=== PATIENT | female | born 1945 | race Caucasian/White ===

== ENCOUNTER → 2020-11-04 11:33 | Outpatient (BNVA) | payer MEDICARE, OTHER, SELFPAY | PROVIDERS: Family Provider Nurse Practitioner Family; PCP Registered Nurse; Visit Provider Registered Nurse | DX: R06.02 Shortness of breath (principal); R06.00 Dyspnea, unspecified; B94.8 Sequelae of other specified infectious and parasitic diseases; I10 Essential (primary) hypertension | CPT/HCPCS: 80053; 85025 ==

== ENCOUNTER 2020-11-06 10:21 | Outpatient (CLI) | payer MEDICARE, OTHER, SELFPAY ==
--- NOTE | 2020-11-06 10:45 | CT_ITS ---
WS: [id number] CT CHEST TECHNIQUE: Noncontrast CT of the chest with coronal and sagittal reformatted images. CLINICAL INFORMATION: R91.1 - Solitary pulmonary nodule COMPARISON: Outside Chest radiograph report November 04, 2020 DLP: 841.[address] scans at [facility] use at least one of these dose optimization techniques: automat ed exposure control; mA and/or kV adjustment per patient size (includes targeted exams where dose is matched to clinical indication); or iterative reconstruction. FINDINGS: Lobulated noncalcified opacity right upper lobe along the hilum measuring 11 x 10 mm. This correspond s to the reported abnormality on the chest radiograph. Findings are nonspecific but suspicious for ne oplasm. This can be further evaluated with PET/CT. This is not amenable to CT-guided biopsy. Addition al noncalcified pulmonary nodule right lower lobe near the diaphragm measuring 8.1 mm. Recommend 6 mo nth follow-up chest CT. Tiny 4 mm noncalcified nodule left upper lobe. Additional 3 mm noncalcified n odule left lower lobe. Patchy hazy ground glass infiltrates in a subpleural configuration throughout both lungs nonspecific but can be seen with infectious or inflammatory pneumonitis including COVID 19-related pneumonia. No focal pneumonia or pleural fluid. No mediastinal or hilar lymphadenopathy. Aortic calcification. C oronary calcification. Calcified granulomatous disease. Diffuse fatty infiltration of the liver. Hepatomegaly. Splenic and hepatic granulomas. Adrenal glands are normal. Moderate esophageal hiatal hernia. Dense cholelithiasis with contracted gallbladder. CT/CT chest wo con [id number] IMPRESSION: 1. Lobulated noncalcified pulmonary nodule measuring 11 x 10 mm along the righ t hilum corresponds to chest CT findings. Findings are nonspecific but suspicio us for neoplasm. This can be further evaluated with PET/CT. 2. Additional noncalcified pulmonary nodule right lower lobe near the diaphrag m measuring 8.1 mm. Recommend 6 month follow-up chest CT. 3. Hazy mild subpleural groundglass infiltrates within both lungs can be seen with infectious or inflammatory etiologies including COVID19 pneumonitis. Recom mend clinical correlation. 4. No focal consolidation or pleural fluid. 5. Dense cholelithiasis with contracted gallbladder. This can be further evalu ated with ultrasound. 6. Moderate esophageal hiatal hernia. 7. Dense diffuse fatty infiltration of the liver.
== END 2020-11-06 10:22 | disposition home or self-care (01) ==
PROVIDERS: PCP Registered Nurse; Visit Provider Registered Nurse
DX: R91.1 Solitary pulmonary nodule (principal); K76.0 Fatty (change of) liver, not elsewhere classified; K44.9 Diaphragmatic hernia without obstruction or gangrene; K80.20 Calculus of gallbladder without cholecystitis without obstruction
CPT/HCPCS: 71250

== ENCOUNTER 2020-12-11 15:32 | Outpatient (CLI) | payer MEDICARE, OTHER, SELFPAY ==
--- NOTE | 2020-12-11 16:08 | XR_ITS ---
WS: [id number] Chest 2 views, 12/11/2020 Clinical Data: rule out pneumonia Comparison: None. Findings: No nodules, masses or effusions are seen. The heart is normal. The pulmonary vascularity is not increased. No pneumonia or pneumothorax is seen. The aortic arch and descending thoracic aorta s how calcification and tortuosity. XR/XR chest 2V* [id number] Impression: Atherosclerosis.
[2020-12-11 16:51] LABS: Basophils # 0.1 10^3/uL (0.0-0.1); Basophils % 0.9 %; Eosinophils # 0.3 10^3/uL (0.0-0.8); Hematocrit 41.6 % (37.0-47.0); Hemoglobin 13.3 g/dL (11.5-15.3); Lymphocytes # 2.1 10^3/uL (0.8-4.8); Mean Corpuscular Hemoglobin 30.4 pg (28.0-34.0); Mean Corpuscular Volume 95.2 fl (81-99); Monocytes # 0.6 10^3/uL (0.2-0.9); Monocytes % 6.9 %; Neutrophils # 5.74 10^3/uL (1.8-7.7); Neutrophils % 64.5 %; Nucleated Red Blood Cells % 0 %; Platelet Count 294 10^3/cmm (130-400); Red Blood Count 4.37 10^6/uL (4.1-5.3); White Blood Count 8.9 10^3/uL (4.0-10.0)
[2020-12-15 18:07] LABS: Alternaria Alternata (M6) Ige <0.10 kU/L; Alternaria Class 0; Bermuda Class 0; Bermuda Grass (G2) Ige <0.10 kU/L; Cat Dander (E1) Ige <0.10 kU/L; Cat Dander Class 0; Common Ragweed (Short) (W1) Ig <0.10 kU/L; D. Farinae Class 0; Dermatophagoides Class 0; Dermatophagoides Farinae (D2) <0.10 kU/L; Dermatophagoides Pteronyssinus <0.10 kU/L; Dog Dander (E5) Ige <0.10 kU/L; Dog Dander Class 0; Elm (T8) Ige <0.10 kU/L; Elm Class 0; English Plantain (W9) Ige <0.10 kU/L; English Plantain Class 0; House Dust (Greer) (H1) Ige <0.10 kU/L; House Dust (Hollister- Stier) <0.10 kU/L; House Dust Class 0; Immunoglobulin E 8 kU/L (<OR=114); Johnson Grass (G10) Ige <0.10 kU/L; Johnson Grass Cl 0; June Grass Class 0; June Grass(Kentucky Blue) (G8) <0.10 kU/L; Lamb'S Quarters (Goose Foot) <0.10 kU/L; Lamb'S Quarters Class 0; Maple (Box Elder) (T1) Ige <0.10 kU/L; Maple Class 0; Meadow Fescue (G4) Ige <0.10 kU/L; Meadow Fescue Class 0; Mucor Racemosus Class 0; Oak (T7) Ige <0.10 kU/L; Oak Class 0; Orchard Grass (Cocksfoot) (G3) <0.10 kU/L; Penicillium Class 0; Penicillium Notatum (M1) Ige <0.10 kU/L; Perennial Rye Grass (G5) Ige <0.10 kU/L; Perennial Rye Grass Class 0; Ragweeed Class 0; Rough Marsh Elder (W16) Ige <0.10 kU/L; Rough Marsh Elder Class 0; Sweet Vernal Class 0; Sweet Vernal Grass (G1) Ige <0.10 kU/L; Timothy Grass (G6) Ige <0.10 kU/L; Timothy Grass Class 0
[2020-12-17 18:18] LABS: Aspergillus Fumigatus, Igg Ab, 9.4 mg/L (<=102)
== END 2020-12-11 15:33 | disposition home or self-care (01) ==
PROVIDERS: PCP Registered Nurse; Visit Provider Internal Medicine Pulmonary Disease
DX: B94.8 Sequelae of other specified infectious and parasitic diseases (principal); J45.909 Unspecified asthma, uncomplicated; R06.00 Dyspnea, unspecified; R06.02 Shortness of breath; I70.90 Unspecified atherosclerosis
CPT/HCPCS: 36415; 71046; 82785; 85025; 86003

== ENCOUNTER 2021-02-05 10:45 | Outpatient (CLI) | payer MEDICARE, OTHER, SELFPAY ==
--- NOTE | 2021-02-05 11:45 | CT_ITS ---
WS: [id number] CT CHEST WITHOUT INTRAVENOUS CONTRAST HISTORY: pulmonary nodule TECHNIQUE: Contiguous 5 mm axial imaging performed on the thorax. Coronal and sagittal reformats are submitted. All CT scans at [facility] use at least one of these dose optimization techniques: automated exposure control; mA and/or kV adjustment per patient size (includes targeted exams where dose is matched to clinical indication); or iterative reconstruction. CONTRAST: None DLP: 796.95 mGycm COMPARISON: 11/06/2020 Lungs and central airway: Recently described solid round pulmonary nodule in the RIGHT upper lobe is again identified. This nodule measures 12 x 12 x 10 mm. Very slight increase in size which could be d ue to slice selection and volume averaging. This nodule is not decreasing in size. Additional 3 mm no dule in the LEFT upper lobe is unchanged. 3 mm nodule posterior LEFT lower lobe is unchanged. 8mm nod ule RIGHT lung base is unchanged. 5 mm nodule RIGHT lower lobe. There is been an improvement in the p eripheral groundglass attenuation suggesting improving pneumonitis. Pleura: Normal. No pleural effusion. Heart and pericardium: Mild cardiomegaly with no pericardial effusion. Mediastinum and deni: No adenopathy identified on this unenhanced study. Vessels: Mild atherosclerosis aorta. No aneurysm. Pulmonary artery size is mildly dilated at 3.3 cm. Chest wall and lower neck: No soft tissue masses. Upper abdomen: Moderate size hiatal hernia. There is increased density within the hiatal hernia. This may be medicinal tablets.: Physis. Dense calcification expected location of the gallbladder. Hepatic and splenic granulomata. Diffuse hepatic steatosis. No adrenal mass. Osseous structures: No osteoblastic or osteolytic bone disease. CT/CT chest wo con [id number] IMPRESSION: 1. Solid nodule in the RIGHT upper lobe has very slightly increased in size si nce 11/06/2020. Nodule measures 12 x 12 x 10 mm. Suspicious but indeterminate for neoplasm. PET/CT was indeterminate on 11/15/2020. Close continued follow-up rec ommended. Recommend follow-up chest CT in 3 months. 2. Additional, subcentimeter bilateral pulmonary nodules are unchanged. 3. Pulmonary hypertension. 4. Cholelithiasis in a contracted gallbladder and hepatic steatosis. 5. Increased density within the lumen of a moderate size hiatal hernia. Suspec t this increased density represents medicinal tablets.
== END 2021-02-05 10:46 | disposition home or self-care (01) ==
PROVIDERS: PCP Registered Nurse; Visit Provider Internal Medicine Pulmonary Disease
DX: R06.00 Dyspnea, unspecified (principal); B94.8 Sequelae of other specified infectious and parasitic diseases; R91.1 Solitary pulmonary nodule; I27.20 Pulmonary hypertension, unspecified; K80.20 Calculus of gallbladder without cholecystitis without obstruction; K76.0 Fatty (change of) liver, not elsewhere classified; K44.9 Diaphragmatic hernia without obstruction or gangrene
CPT/HCPCS: 71250

== ENCOUNTER → 2021-02-09 09:56 | Outpatient (BNVA) | payer MEDICARE, OTHER, SELFPAY | PROVIDERS: PCP Registered Nurse; Visit Provider Internal Medicine Pulmonary Disease | DX: B94.8 Sequelae of other specified infectious and parasitic diseases (principal); J45.20 Mild intermittent asthma, uncomplicated; R06.00 Dyspnea, unspecified; Z20.822 Contact with and (suspected) exposure to COVID-19 | CPT/HCPCS: 87635 ==

== ENCOUNTER 2021-02-12 10:58 | Outpatient (CLI) | payer MEDICARE, OTHER, SELFPAY ==
--- NOTE | 2021-02-12 11:19 | PFTS_ITS ---
Date of Study:02/12/21 Date of Dictation: MECHANICS: Forced vital capacity (FVC) is normal. Forced expiratory volume in one second (FEV1) is normal. FEV1/FVC is normal. FLOW VOLUME LOOP: Normal. LUNG VOLUMES: Total lung capacity (TLC) is normal. Residual volume (RV) is normal. DIFFUSING CAPACITY FOR CARBON MONOXIDE: Normal. INTERPRETATION: The postbronchodilator spirometry is normal. There is some postbronchodilator improvement in FEV1 but this does not reach steady state of significance. Lung volumes are normal. Gas exchange (DLCO) is normal. MTDD
== END 2021-02-12 10:59 | disposition home or self-care (01) ==
LOC: RT 10:59
PROVIDERS: PCP Registered Nurse; Visit Provider Internal Medicine Pulmonary Disease
DX: J45.909 Unspecified asthma, uncomplicated (principal); R06.00 Dyspnea, unspecified; B94.8 Sequelae of other specified infectious and parasitic diseases
CPT/HCPCS: 94060; 94618; 94726; 94729; J7611

== ENCOUNTER → 2023-06-27 08:03 | Outpatient (BNVA) | payer MEDICARE, OTHER, SELFPAY | PROVIDERS: PCP Registered Nurse; Visit Provider Registered Nurse | DX: E11.9 Type 2 diabetes mellitus without complications (principal) | CPT/HCPCS: 80053; 80061; 83036; 85025 ==

== ENCOUNTER → 2024-08-02 10:50 | Outpatient (BNVA) | payer MEDICARE, OTHER, SELFPAY | PROVIDERS: PCP Registered Nurse; Visit Provider Registered Nurse | DX: I10 Essential (primary) hypertension (principal); E11.9 Type 2 diabetes mellitus without complications | CPT/HCPCS: 80053; 80061; 83036; 85025 ==

== ENCOUNTER 2024-08-14 09:27 | Outpatient (CLI) | payer MEDICARE, OTHER, SELFPAY ==
--- NOTE | 2024-08-14 10:45 | CT_ITS ---
WS: [id number] CT chest wo con [id number] HISTORY: R91.1 - Solitary pulmonary nodule TECHNIQUE: Axial imaging performed through the thorax. Coronal and sagittal reformats are submitted. All CT scans at [facility] use at least one of these dose optimization techniques: automated exposure control; mA and/or kV adjustment per patient size (includes targeted exams where dose is matched to clinical indication); or iterative reconstruction. CONTRAST: Omnipaque 350; 100 mL IV. DLP: 391.62 mGy.cm COMPARISON: 02/05/2021 Lungs and central airway: Well-aerated lungs. Reidentified is a noncalcified slightly lobulated RIGHT upper lobe pulmonary nodule measuring 12 x 10 x 12 mm. Not significantly changed in size since 02/05/2021. There are a few additional 3 to 4 mm scattered pulmonary nodules which are unchanged. Pleura: Normal. No pleural effusion. Heart and pericardium: Heart has increased in size since the prior examination of 2020. Mediastinum and deni: Small mediastinal and hilar lymph nodes. Some of these lymph nodes contain calcifications. Vessels: Mild atherosclerosis aorta. Normal size aorta. Dilated pulmonary artery measuring 3.3 cm in diameter. Chest wall and lower neck: No soft tissue masses. Upper abdomen: Large hiatal hernia. Splenic and hepatic granulomata. Cholelithiasis. Mild thickening of the LEFT adrenal gland. Splenic flexure diverticulosis. Osseous structures: 50% T12 compression fracture with 3 mm retropulsion of the posterior superior endplate which is new since 2020. CT/CT chest wo con [id number] IMPRESSION: 1. Long-term stability noncalcified RIGHT upper lobe pulmonary nodule measurin g 12 x 10 x 12 mm. No additional follow-up necessary. 2. Additional scattered tiny micronodules. Some of these are calcified. Stable also. 3. New T12 50% compression fracture with retropulsion. Mild contact on the brie tral cord. New since 2020. 4. Pulmonary hypertension. 5. Cholelithiasis.
== END 2024-08-14 09:28 | disposition home or self-care (01) ==
LOC: RAD 09:28
PROVIDERS: PCP Registered Nurse; Visit Provider Registered Nurse
DX: R91.1 Solitary pulmonary nodule (principal); S22.080A Wedge compression fracture of T11-T12 vertebra, initial encounter for closed fracture; X58.XXXA Exposure to other specified factors, initial encounter; I27.20 Pulmonary hypertension, unspecified; Z90.49 Acquired absence of other specified parts of digestive tract; I51.7 Cardiomegaly; R59.0 Localized enlarged lymph nodes; I70.0 Atherosclerosis of aorta; I28.1 Aneurysm of pulmonary artery; K44.9 Diaphragmatic hernia without obstruction or gangrene; D73.89 Other diseases of spleen; K75.3 Granulomatous hepatitis, not elsewhere classified; E27.8 Other specified disorders of adrenal gland; K57.30 Diverticulosis of large intestine without perforation or abscess without bleeding
CPT/HCPCS: 71250

== ENCOUNTER → 2024-08-23 13:36 | Outpatient (BNVA) | payer MEDICARE, OTHER, SELFPAY | PROVIDERS: PCP Registered Nurse; Visit Provider Orthopaedic Surgery | DX: S22.080A Wedge compression fracture of T11-T12 vertebra, initial encounter for closed fracture (principal); X58.XXXA Exposure to other specified factors, initial encounter | CPT/HCPCS: 72072; 99203 ==